=== PATIENT | female | born 1985 | race Caucasian/White ===

== ENCOUNTER 2023-10-25 09:39 | Emergency (ER) | payer SELFPAY ==
[2023-10-25 10:00] VITALS: BP 138/88; PULSE 93; RESP 17; TEMP 36.7; O2SAT 100; BMI 26.3
--- NOTE | 2023-10-25 11:23 | ED_ITS ---
HPI - General Adult General: Chief complaint: General Medical Stated complaint: Joint pain all over Time Seen by Provider: 10/25/23 11:16 Source: patient Mode of arrival: ambulatory Limitations: no limitations History of Present Illness: 38-year-old female has a long history of rheumatoid arthritis she states she feels like she is having a flare she is having joint pain all over. She states she feels like her medicines are not working. Denies any fevers denies any vomiting or diarrhea denies any injuries. Associated symptoms: Deny chest pain, dyspnea, headache(s), nausea, rash or vomiting Review of Systems Const: Denies: fever(s), chills, body aches or change in appetite Eyes: Denies: blurry vision or eye discomfort ENMT: Denies: throat pain or dental pain Card: Denies: chest pain Resp: Denies: dyspnea GI: Denies: abdominal pain, nausea, vomiting or diarrhea Musc: Reports: extremity pain; Denies: neck pain or back pain Skin/Breast: Denies: rash Neuro: Denies: headache(s) Physical Exam Const: COMMON NORMALS: no acute distress, patient oriented x3 and healthy appearing HENMT: COMMON NORMALS: normocephalic and atraumatic HEAD & SCALP: normocephalic and atraumatic Eye: COMMON NORMALS: Equal, round and reactive pupils present and EOMs intact bilaterally PUPIL: Yes Equal, round and reactive pupils present Neck/C-Spine: COMMON NORMALS: full ROM and supple Chest: COMMONS NORMALS: normal inspection of the chest and normal palpation of entire chest wall Resp: COMMON NORMALS: normal respiratory effort, No retractions, No use of accessory muscles and clear to auscultation bilaterally AUSCULTATION: clear to auscultation bilaterally Cardio: COMMON NORMALS: regular rate, regular rhythm and No murmurs present (Cardio) RATE: regular rate RHYTHM: regular rhythm GI: COMMON NORMALS: Normal to inspection, nondistended, normoactive bowel sounds present, Soft to palpation, non-tender and no masses PALPATION: Yes Soft to palpation Extremity: COMMON NORMALS: normal to inspection and full ROM Neuro: COMMON NORMALS: patient oriented x3, moves all extremities and no focal motor deficits Psych: COMMON NORMALS: mental status grossly normal, Normal thought process present and cooperative THOUGHT PROCESS: Normal thought process present Skin: COMMON NORMALS: no rashes or lesions noted and no wounds GENERAL SKIN EXAM: no rashes or lesions noted Course Vital Signs: Vital signs: Vital Signs Temperature 98.0 F 10/25/23 10:00 Pulse Rate 85 10/25/23 12:03 Respiratory Rate 18 10/25/23 11:39 Blood Pressure 138/88 10/25/23 10:00 Pulse Oximetry 100 10/25/23 12:03 Oxygen Delivery Me thod Room Air 10/25/23 12:03 MDM - General Adult Medical Decision Making Patient presents here with joint pain likely from her RA she feels much improved she is stable for discharge she is follow-up with PCP return if worsening. Medical Records I reviewed the patient's medical records. 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
[2023-10-25] MEDS: HYDROcodone-acetaminophen 5-325 mg Tablet 1 TAB PO (11:38)
[2023-10-25] MEDS: dexamethasone 10 mg/mL INJ IM (11:38)
[2023-10-25 11:39] VITALS: RESP 18
[2023-10-25] MEDS: morphine 4 mg/mL SDV 1 mL IM (11:39)
[2023-10-25 12:03] VITALS: PULSE 85; O2SAT 100
== END 2023-10-25 12:20 | disposition home or self-care (01) ==
PROVIDERS: Emergency Provider Emergency Medicine
DX: M25.59 Pain in other specified joint (principal); M06.9 Rheumatoid arthritis, unspecified
CPT/HCPCS: 96372; 99284; J1100; J2270